=== PATIENT | male | born 1990 | race Caucasian/White ===

== ENCOUNTER 2018-07-07 09:41 | Emergency (ER) | payer OTHER ==
[~2018-07-07] VITALS: Ht 182.9 cm; Wt 117.9 kg
[~2018-07-07 09:41] MED LIST: CIPROFLOXACIN500 M1 PO; FLAGYL500 MG PO; FLEXERIL PO; IBUPROFEN 800800 M1 PO; NOHOMEMEDICATIONS; NORCO 7.5-3251 EACH PO; ULTRAM 50MG TAB50 MG PO; ZPAK PO
[2018-07-07 09:55] LABS: URINE COLOR YELLOW
[2018-07-07 09:56] LABS: URINE CLARITY CLEAR; URINE SPECIFIC GRAVITY 1.025 (1.005-1.035)
[2018-07-07 09:57] LABS: URINE BILIRUBIN NEGATIVE (Negative); URINE BLOOD NEGATIVE (Negative); URINE GLUCOSE-RANDOM* NEGATIVE (Negative); URINE KETONES NEGATIVE (Negative); URINE LEUKOCYTES-REFLEX 1+ (Negative); URINE NITRITE-REFLEX NEGATIVE (Negative); URINE PROTEIN (DIPSTICK) NEGATIVE (Negative); URINE UROBILINOGEN 0.2 E.U./dl (0.2-1.0)
[2018-07-07 10:11] LABS: CASTS None Seen /LPF (None Seen); CRYSTALS None Seen /LPF (None Seen); URINE RBC None Seen /HPF (0-2)
[2018-07-07 10:14] LABS: SQUAMOUS None Seen /LPF (0-3); URINE WBC-REFLEX >25 Many /HPF (0-5)
[2018-07-07] MEDS ORDERED: DOXYCYCLINE 10100 MG PO (11:45)
[2018-07-07] MEDS ORDERED: NORCO 5-325 TA1 EACH PO (11:46)
[2018-07-07 11:49] VITALS: BP 146/89
== END 2018-07-07 11:59 | disposition home or self-care (01) ==
LOC: ER 09:41
PROVIDERS: Nurse Practitioner Family
DX: N45.1 Epididymitis (principal); F17.210 Nicotine dependence, cigarettes, uncomplicated; Z98.890 Other specified postprocedural states